=== PATIENT | male | born 1975 | race Two or more races ===

== ENCOUNTER 2024-09-20 00:55 | Emergency (ER) | payer MEDICAID, OTHER ==
[~2024-09-20] VITALS: Ht 172.7 cm; Wt 72.6 kg
[2024-09-20] MEDS ORDERED: LIDOCAINE 5% (PATCH) 1 EA PATCH TP ONE (02:26)
[2024-09-20] MEDS ORDERED: KETOROLAC TROMETHAMINE 15 MG/ML VIAL ONE (02:26)
[2024-09-20] MEDS ORDERED: ACETAMINOPHEN ES 500 MG TABLET ONE (02:27)
[2024-09-20] MEDS ORDERED: DIAZEPAM 5 MG TABLET ONE (02:27)
[2024-09-20] MEDS ORDERED: CYCLOBENZAPRINE 10 MG TABLET ONE (02:27)
[2024-09-20] MEDS: ACETAMINOPHEN ES 500 MG TABLET PO ONE (02:37)
[2024-09-20] MEDS: DIAZEPAM 5 MG TABLET PO ONE (02:37)
[2024-09-20] MEDS: LIDOCAINE 5% (PATCH) 1 EA PATCH TP SCH (02:37)
[2024-09-20] MEDS: CYCLOBENZAPRINE 10 MG TABLET PO ONE (02:37)
[2024-09-20] MEDS: KETOROLAC TROMETHAMINE 15 MG/ML VIAL IM ONE (02:37)
[2024-09-20] MEDS ORDERED: ACET-2605 PO (03:09)
[2024-09-20] MEDS ORDERED: IBUP-1490 PO (03:09)
[2024-09-20] MEDS ORDERED: LIDO30AD10 TP (03:09)
[2024-09-20] MEDS ORDERED: CYCL10TA9 PO (03:09)
[2024-09-20 03:21] VITALS: BP 145/90; TEMP 98; O2SAT 99
== END 2024-09-20 03:21 | disposition home or self-care (01) ==
LOC: ER 00:57
DX: M54.41 Lumbago with sciatica, right side (principal); Z79.899 Other long term (current) drug therapy
CPT/HCPCS: 99284; 96372; J1885

== ENCOUNTER 2024-12-28 12:48 | Emergency (ER) | payer MEDICAID ==
[~2024-12-28] VITALS: Ht 172.7 cm; Wt 72.6 kg
[~2024-12-28 12:48] MED LIST: ACET-2605 PO; CYCL10TA9 PO; IBUP-1490 PO; LIDO30AD10 TP
[2024-12-28] MEDS: METHOCARBAMOL (500MG) 500 MG TABLET PO ONE (15:30)
[2024-12-28] MEDS: KETOROLAC TROMETHAMINE 15 MG/ML VIAL IM ONE (15:30)
[2024-12-28] MEDS: LIDOCAINE 5% (PATCH) 1 EA PATCH TP SCH (15:30)
[2024-12-28] MEDS ORDERED: KETOROLAC TROMETHAMINE 15 MG/ML VIAL ONE (15:39)
[2024-12-28] MEDS ORDERED: LIDOCAINE 5% (PATCH) 1 EA PATCH TP ONE (15:39)
[2024-12-28] MEDS ORDERED: METHOCARBAMOL (500MG) 500 MG TABLET ONE (15:39)
[2024-12-28] MEDS ORDERED: IBUP-1490 PO (16:39)
[2024-12-28] MEDS ORDERED: ACET-2605 PO (16:39)
[2024-12-28] MEDS ORDERED: METH-647 PO (16:39)
[2024-12-28] MEDS ORDERED: LIDO30AD10 TP (16:39)
[2024-12-28 16:51] VITALS: BP 141/81; TEMP 97.9; O2SAT 99
== END 2024-12-28 16:51 | disposition home or self-care (01) ==
LOC: ER 12:48
DX: M54.41 Lumbago with sciatica, right side (principal); Z91.048 Other nonmedicinal substance allergy status
CPT/HCPCS: 99283; 96372; 72110; J1885